=== PATIENT | male | born 1990 | race Caucasian/White ===

== ENCOUNTER 2023-10-22 11:44 | Emergency (ER) | payer OTHER, BC | END 2023-10-22 12:40 | disposition home or self-care (01) | LOC: VM.ED 11:44 | DX: S31.113A Laceration without foreign body of abdominal wall, right lower quadrant without penetration into peritoneal cavity, initial encounter (principal); W26.8XXA Contact with other sharp object(s), not elsewhere classified, initial encounter; Y93.89 Activity, other specified | CPT/HCPCS: 12001; 99282 ==